=== PATIENT | male | born 1935 | race Two or more races ===

== ENCOUNTER 2019-02-09 12:18 | Inpatient (IN) | payer MEDICARE, MEDICAID ==
[~2019-02-09] VITALS: Ht 167.6 cm; Wt 78.5 kg
[2019-02-09] MEDS ORDERED: ASPIRIN 325 MG TABLET PO ONE (12:30)
[2019-02-09] MEDS ORDERED: NITROGLYCERIN PACKET 1 GM PACKET TD ONE (12:30)
[2019-02-09 12:40] LABS: BASOPHILS # (AUTO) 0.1 /CMM (0.0-0.2); BASOPHILS % (AUTO) 0.6 % (0.0-2.0); EOSINOPHILS % (AUTO) 1.7 % (0.0-6.0); HEMATOCRIT 30 % (39-51); HEMOGLOBIN 9.9 g/dL (13.5-17.5); LYMPHOCYTES # (AUTO) 1.7 /CMM (0.8-4.8); LYMPHOCYTES % (AUTO) 17.6 % (20.0-44.0); MEAN CORPUSCULAR HGB CONC 34 g/dl (31.0-36.0); MEAN CORPUSCULAR VOLUME 89 fL (80-96); MONOCYTES # (AUTO) 0.6 /CMM (0.1-1.30); MONOCYTES % (AUTO) 5.8 % (2.0-12.0); NEUTROPHILS # (AUTO) 7.1 /CMM (1.8-8.9); NEUTROPHILS % (AUTO) 74.3 % (43.0-81.0); PLATELET COUNT (AUTO) 275 /CMM (150-450); RED BLOOD CELL COUNT(AUTO) 3.32 MIL/uL (4.5-6.0); WHITE BLOOD COUNT (AUTO) 9.6 K/uL (4.3-11.0)
[2019-02-09] MEDS ORDERED: NITROGLYCERIN PACKET 1 GM PACKET ONE (12:40)
[2019-02-09] MEDS ORDERED: ASPIRIN 325 MG TABLET ONE (12:41)
--- NOTE | 2019-02-09 12:45 | NUR ---
PT TO ER BED 12. NO ACUTE DISTRESS. HOOKED UP TO MONITOR. AWAITNG MD ROJAS.
[2019-02-09 12:49] LABS: CALCIUM, SERUM 8.7 mg/dL (8.5-10.1); CARBON DIOXIDE 20 mmol/L (21-32); CHLORIDE 105 mmol/L (98-107); GLUCOSE 273 mg/dL (74-106); POTASSIUM 4.9 mmol/L (3.5-5.1); SODIUM SERUM 138 mmol/L (136-145); UREA NITROGEN, BLOOD 49 mg/dL (7-18)
[2019-02-09 12:55] LABS: ALANINE AMINOTRANSFERASE 23 U/L (12-78); ALBUMIN 3.1 g/dL (3.4-5.0); ALKALINE PHOSPHATASE 76 U/L (46-116); ASPARTATE AMINOTRANSFERASE 15 U/L (15-37); BILIRUBIN,TOTAL 0.2 mg/dL (0.2-1.0); TOTAL PROTEIN, SERUM 6.6 g/dL (6.4-8.2)
--- NOTE | 2019-02-09 13:08 | NUR ---
IV ACCESS OBATINED ON R AC 18G
--- NOTE | 2019-02-09 13:23 | NUR ---
WENDY PAGED, GONZALO MUELLER NURSING SERVICE DIRECTOR SECURITY AUDITOR
--- NOTE | 2019-02-09 13:23 | NUR ---
CALLED NURSING SUP. FOR TELE BED
--- NOTE | 2019-02-09 13:37 | NUR ---
TELE 106, COLIN
--- NOTE | 2019-02-09 13:52 | NUR ---
[facility] REPAGED
[2019-02-09] MEDS ORDERED: ENOXAPARIN SODIUM 60 MG/0.6 ML DISP.SYRIN SQ ONE (14:30)
[2019-02-09] MEDS ORDERED: ENOXAPARIN SODIUM 80 MG/0.8 ML DISP.SYRIN SQ ONE (14:39)
[2019-02-09] MEDS ORDERED: MORPHINE SULFATE INJ 2 MG/ML DISP.SYRIN IV PRN (15:00)
[2019-02-09] MEDS ORDERED: ACETAMINOPHEN 325 MG TABLET PO PRN (15:00)
[2019-02-09] MEDS ORDERED: MAG HYDROX/AL HYDROX/SIMETH 30 ML UDC PO PRN (15:00)
[2019-02-09] MEDS ORDERED: NITROGLYCERIN 0.4 MG/TAB BOTTLE SL PRN (15:00)
[2019-02-09] MEDS ORDERED: DOCUSATE SODIUM 100 MG CAPSULE PO PRN (15:00)
[2019-02-09] MEDS ORDERED: ONDANSETRON HCL/PF 4 MG/2 ML VIAL IVP PRN (15:00)
--- NOTE | 2019-02-09 15:02 | NUR ---
REPORT GIVEN TO FAUSTINA SHAW FOR 106 TELE IN [place]
--- NOTE | 2019-02-09 15:11 | NUR ---
[facility]
--- NOTE | 2019-02-09 15:30 | NUR ---
RN NOTE RECEIVED PT ON BED WITH SON AT BEDSIDE, AOX3, NORTH KOREAN AND SUDANESE SPEAKING, CO PAIN IN THROAT AND CHEST 04/19. NO SOB. SKIN INTACT, IV IN R AC INTACT. VS STABLE. SON REQUESTS ACCU CHECK AND INSULIN TO BE ORDERED EDE SO PT CAN HAVE FOOD. SAFETY MEASURES IN PLACE, CALL LIGHT WITHIN REACH. WILL CONTINUE TO MONITOR.
[2019-02-09 15:45] VITALS: BP 105/60
[2019-02-09] MEDS ORDERED: DEXTROSE 50%-WATER 50 ML DISP.SYRIN IV PRN (16:00)
[2019-02-09] MEDS ORDERED: BLOOD SUGAR DIAGNOSTIC 1 EACH STRIP IN SCH (17:30)
[2019-02-09] MEDS: BLOOD SUGAR DIAGNOSTIC 1 EACH STRIP IN SCH ×2 (18:02→21:21)
[2019-02-09] MEDS: INSULIN REGULAR, HUMAN 100 UNIT/ML 3 ML VIAL SQ PRN ×2 (18:04→21:24)
[2019-02-09] MEDS ORDERED: FURO20TA4 PO (18:14)
[2019-02-09] MEDS ORDERED: ASPI-1169 PO (18:14)
[2019-02-09] MEDS ORDERED: ATOR20TA PO (18:14)
[2019-02-09] MEDS ORDERED: ENAL10TA PO (18:14)
--- NOTE | 2019-02-09 19:10 | NUR ---
DENTISTRY PROFESSOR NOTE PATIENT IS RESTING WITH HOB ELEVATED AOX3, ZAMBIAN SPEAKING, UNDERSTANDS SOME HEBREW, SPEECH IS CLEAR, ON ROOM AIR, NO S/SX OF CARDIAC OR RESPIRATORY DISTRESS, ON TELE SR, RAC #20G SL PATENT, FLUSHING WELL, SKIN KEPT CLEAN AND DRY, SAFETY MAINTAINED AT ALL TIMES, BED IN LOW LOCKED POSITION, CALL LIGHT WITHIN REACH, WILL CONTINUE TO MONITOR FOR ANY CHANGES IN CONDITION.
[2019-02-09] MEDS: MENTHOL/CETYLPYRD (CEPACOL) 1 LOZ LOZENGE PO PRN (19:29)
[2019-02-09 20:00] VITALS: BP 127/57
[2019-02-09] MEDS: INSULIN GLARGINE, 100 UNIT/ML CARTRIDGE SQ SCH (21:23)
[2019-02-09] MEDS ORDERED: SIMVASTATIN 20 MG TABLET PO SCH (22:00)
[2019-02-10] VITALS: BP 127/77
[2019-02-10 03:07] LABS: APPEARANCE,URINE CLEAR (CLEAR); BILIRUBIN,URINE NEGATIVE (NEGATIVE); BLOOD, URINE TRACE Ery/uL (NEGATIVE); COLOR,URINE YELLOW (YELLOW); KETONES,URINE NEGATIVE (NEGATIVE); LEUKOCYTE ESTERASE ,URINE NEGATIVE (NEGATIVE); NITRITE, URINE NEGATIVE (NEGATIVE); PH,URINE 5.5 (5.0-8.0); PROTEIN,URINE NEGATIVE (NEGATIVE); UGLUCOSE TRACE mg/dL (NEGATIVE); UROBILINOGEN,URINE 0.2 EU/dL (0.2)
[2019-02-10 03:34] LABS: BACTERIA,URINE None seen /HPF (None Seen); RBC,URINE 0-2 /HPF (0-2); SQUAMOUS EPITHELIAL CELL,UR Few /HPF (None Seen); WBC,URINE 0-2 /HPF (0-3)
[2019-02-10 03:35] LABS: MUCUS,URINE Few /LPF (None Seen)
[2019-02-10 04:00] VITALS: BP 145/74
[2019-02-10 04:43] LABS: BASOPHILS % (AUTO) 0.5 % (0.0-2.0); EOSINOPHILS % (AUTO) 3.2 % (0.0-6.0); HEMATOCRIT 30 % (39-51); LYMPHOCYTES # (AUTO) 2.3 /CMM (0.8-4.8); LYMPHOCYTES % (AUTO) 25.6 % (20.0-44.0); MEAN CORPUSCULAR HGB CONC 34 g/dl (31.0-36.0); MEAN CORPUSCULAR VOLUME 88 fL (80-96); MONOCYTES # (AUTO) 0.6 /CMM (0.1-1.30); NEUTROPHILS # (AUTO) 5.6 /CMM (1.8-8.9); NEUTROPHILS % (AUTO) 63.7 % (43.0-81.0); PLATELET COUNT (AUTO) 275 /CMM (150-450); RED BLOOD CELL COUNT(AUTO) 3.35 MIL/uL (4.5-6.0); WHITE BLOOD COUNT (AUTO) 8.8 K/uL (4.3-11.0)
[2019-02-10 05:25] LABS: SODIUM SERUM 145 mmol/L (136-145)
[2019-02-10 05:27] LABS: CHOLESTEROL 183 mg/dL (<200); HDL CHOLESTEROL 35 mg/dL (40-60); LDL 125 mg/dL (0-99); TRIGLYCERIDES 182 mg/dL (30-150)
[2019-02-10 05:30] LABS: CALCIUM, SERUM 8.8 mg/dL (8.5-10.1); CARBON DIOXIDE 23 mmol/L (21-32); PHOSPHORUS 3.5 mg/dL (2.5-4.9); POTASSIUM 4.5 mmol/L (3.5-5.1); THYROID STIMULATING HORMONE 1.583 uIU/mL (0.358-3.74)
[2019-02-10 05:33] LABS: CHLORIDE 110 mmol/L (98-107); CREATININE 1.9 mg/dL (0.6-1.3); GLUCOSE 67 mg/dL (74-106); MAGNESIUM 1.2 mg/dL (1.8-2.4); UREA NITROGEN, BLOOD 52 mg/dL (7-18)
--- NOTE | 2019-02-10 07:15 | NUR ---
RN NOTES PATIENT RECEIVED AWAKE ALERT AND VERBALLY RESPONSIVE, RESPIRATIONS EVEN AND UNLABORED, DENIES ANY PAIN OR DISCOMFORT AT THIS TIME. IV ACCESS TO RIGHT AC PATENT AND INTACT NO REDNESS OR INFILTRATION NOTED. PATIENT KEPT CLEAN AND DRY, CALL LIGHT WITHIN EASY REACH WILL CONTINUE TO MONITOR
[2019-02-10 08:00] VITALS: BP 149/53
[2019-02-10] MEDS: BLOOD SUGAR DIAGNOSTIC 1 EACH STRIP IN SCH ×2 (08:28→12:06)
[2019-02-10] MEDS: INSULIN REGULAR, HUMAN 100 UNIT/ML 3 ML VIAL SQ PRN ×3 (08:28→17:12)
[2019-02-10] MEDS: ASPIRIN 325 MG TABLET PO SCH (08:51)
[2019-02-10] MEDS: MENTHOL/CETYLPYRD (CEPACOL) 1 LOZ LOZENGE PO PRN ×2 (08:54→19:03)
[2019-02-10] MEDS ORDERED: ENALAPRIL MALEATE (10 MG) 10 MG TABLET PO SCH (09:00)
[2019-02-10] MEDS ORDERED: FUROSEMIDE 20 MG TABLET PO SCH (09:00)
[2019-02-10] MEDS ORDERED: ASPIRIN 81 MG TAB.CHEW PO SCH (09:00)
[2019-02-10] MEDS ORDERED: IV NS 0.9% 1,000 ML IV PRN (09:48)
[2019-02-10] MEDS: Magnesium 1GM/D5W 100ML PREMIX 100 ML IV SCH ×2 (10:32→11:42)
[2019-02-10 12:59] LABS: APPEARANCE,URINE CLEAR (CLEAR); BILIRUBIN,URINE NEGATIVE (NEGATIVE); BLOOD, URINE TRACE Ery/uL (NEGATIVE); COLOR,URINE YELLOW (YELLOW); KETONES,URINE NEGATIVE (NEGATIVE); LEUKOCYTE ESTERASE ,URINE NEGATIVE (NEGATIVE); NITRITE, URINE NEGATIVE (NEGATIVE); PROTEIN,URINE NEGATIVE (NEGATIVE); UGLUCOSE 1+ mg/dL (NEGATIVE); UROBILINOGEN,URINE 0.2 EU/dL (0.2)
[2019-02-10 13:07] LABS: CREATININE, URINE 48.4 MG/DL (30.0-125.0)
[2019-02-10 13:09] LABS: BACTERIA,URINE None seen /HPF (None Seen); RBC,URINE 0-2 /HPF (0-2); SQUAMOUS EPITHELIAL CELL,UR None Seen /HPF (None Seen); WBC,URINE NONE SEEN /HPF (0-3)
[2019-02-10 13:10] LABS: EOSINOPHIL,URINE None Seen
[2019-02-10] MEDS ORDERED: DEXTROSE 50%-WATER 50 ML DISP.SYRIN IV PRN (15:00)
[2019-02-10] MEDS ORDERED: *INSULIN REGULAR(HUMULIN R)HUM 100 UNIT/ML VIAL SQ PRN (15:00)
[2019-02-10 16:00] VITALS: BP 142/58
[2019-02-10] MEDS: BLOOD SUGAR DIAGNOSTIC 1 EACH STRIP VI SCH ×2 (17:05→21:41)
--- NOTE | 2019-02-10 19:40 | NUR ---
RN NOTES PATIENT AWAKE ALERT AND VERBALLY RESPONSIVE, RESPIRATIONS EVEN AND UNLABORED, DENIES ANY PAIN OR DISCOMFORT AT THIS TIME. IV ACCESS TO RIGHT AC PATENT AND INTACT NO REDNESS OR INFILTRATION NOTED RUNNING NORMAL SALINE AT 100CC/HR . FAMILY AWARE, PT TO HAVE STRESS TEST IN AM, AWARE NOT TO HAVE ANY CAFFEINE TONIGHT AND NPO AFTER MIDNIGHT. PATIENT KEPT CLEAN AND DRY, CALL LIGHT WITHIN EASY REACH, ENDORSED TO NEXT SHIFT FOR CONTINUITY OF CARE
[2019-02-10 20:00] VITALS: BP 113/62
--- NOTE | 2019-02-10 20:08 | NUR ---
ms dylan initial notes seen pt in bed with family at the bedside talking to him. pt denies any pain or any discomfort. pt also aware of his stress test in am at 8am and sons told me that he's coming before the schedule. ivf ns at 100ml/hr infusing on his left AC patent and intact. kept him warm and comfortable at all times. will continue monitoring. place call light reach.
[2019-02-10] MEDS: INSULIN GLARGINE, 100 UNIT/ML CARTRIDGE SQ SCH (21:46)
[2019-02-10] MEDS ORDERED: ATORVASTATIN 10 MG TABLET PO SCH (22:00)
--- NOTE | 2019-02-10 22:00 | NUR ---
MS PALMA NOTES PT AWAKE AND WATCHING TV , ROUTINE MEDS GIVEN AND BLOOD SUGAR CHECKED DONE 241, 40 UNITS OF LANTUS GIVEN WELL 4 UNITS OF INSULIN.NO SIGNS OF HYPER GLYCEMIA NOTED. SNACKS ASLO SERVED, PT STILL ON IVF NS AT 100ML/HR. WILL CONTINUE MONITORING. PLACE CALL LIGHT AT REACH.
--- NOTE | 2019-02-11 | NUR ---
MS LIGHTING FIXTURES DECORATOR NOTES PT SLEEPING COMFORTABLY IN BED WITHOUT ANY DISTRESS NOTED. BREATHING EVEN AND UNLABORED . IVF STILL INFUSING. NPO STARTED NOW BECAUSE OF HIS STRESS TEST. KEPT HIM WARM AND COMFORTABLE AT ALL TIMES. PLACE CALL LIGHT AT REACH.
[2019-02-11 00:43] VITALS: BP 128/70
--- NOTE | 2019-02-11 03:36 | NUR ---
MS REGULAR SENIOR CARE PROVIDER NOTES PT WOKE UP AND WANTS TO USED THE RESTROOM, ABLE TO AMBULATE BY HIMSELF. NO SIGNS OF ANY PAIN OR ANY DISCOMFORT. BACK TO BED AND IVF STILL INFUSING NS AT 100ML/HR. KEPT HIM WARM AND COMFORTABLE AT ALL TIMES. PLACE CALL LIGHT AT REACH.
[2019-02-11 04:38] VITALS: BP 129/58
[2019-02-11 06:27] LABS: BASOPHILS % (AUTO) 0.4 % (0.0-2.0); EOSINOPHILS % (AUTO) 2.4 % (0.0-6.0); HEMATOCRIT 31 % (39-51); HEMOGLOBIN 10.2 g/dL (13.5-17.5); LYMPHOCYTES % (AUTO) 23.8 % (20.0-44.0); MEAN CORPUSCULAR HGB CONC 34 g/dl (31.0-36.0); MEAN CORPUSCULAR VOLUME 88 fL (80-96); MONOCYTES # (AUTO) 0.6 /CMM (0.1-1.30); MONOCYTES % (AUTO) 7.1 % (2.0-12.0); NEUTROPHILS # (AUTO) 5.5 /CMM (1.8-8.9); NEUTROPHILS % (AUTO) 66.3 % (43.0-81.0); PLATELET COUNT (AUTO) 283 /CMM (150-450); RED BLOOD CELL COUNT(AUTO) 3.47 MIL/uL (4.5-6.0); WHITE BLOOD COUNT (AUTO) 8.3 K/uL (4.3-11.0)
[2019-02-11 06:48] LABS: CREATINE KINASE, TOTAL 70 U/L (39-308)
--- NOTE | 2019-02-11 06:48 | NUR ---
MS PALMA CLOSING NOTES PT AWAKE AT THIS TIME WATCHING TV AT THIS TIME. AWARE OF HIS PROCEDURE TODAY AND I ALSO TOLD HIM THAT HE CAN'T EAT OR DRINK AT THIS TIME UNTIL HIS TEST BEEN DONE AND PT UNDERSTOOD WELL. PT ALSO AWARE THAT HIS SON COMING BEFORE HIS STRESS TEST. STABLE OTILIA THE NIGHT AND SLEPT WELL. ALL DUE MEDS GIVEN AND ALL NEEDS MET. KEPT HIM WARM AND COMFORTABLE AT ALL TIMES. MORNING CARE DONE WELL BED LINEN CHANGED FOR PT COMFORT. PT STATED "THANK YOU ". BLOOD SUGAR CHECKED ALSO 151 , NO INSULIN GIVEN AT THIS TIME BECAUSE PT NPO SINCE 12 MN FOR STRESS TEST. NO SIGNS OF ANY DISCOMFORT. WILL ENDORSE TO AM NURSE FOR CONTINUITY OF CARE. PLACE CALL LIGHT AT REACH.
[2019-02-11 06:54] LABS: ALANINE AMINOTRANSFERASE 22 U/L (12-78); ALBUMIN 2.8 g/dL (3.4-5.0); ALKALINE PHOSPHATASE 73 U/L (46-116); ASPARTATE AMINOTRANSFERASE 13 U/L (15-37); BILIRUBIN,TOTAL 0.2 mg/dL (0.2-1.0); CALCIUM, SERUM 8.4 mg/dL (8.5-10.1); CARBON DIOXIDE 22 mmol/L (21-32); CHLORIDE 110 mmol/L (98-107); CREATININE 1.5 mg/dL (0.6-1.3); GLUCOSE 156 mg/dL (74-106); MAGNESIUM 1.7 mg/dL (1.8-2.4); PHOSPHORUS 3.3 mg/dL (2.5-4.9); POTASSIUM 4.5 mmol/L (3.5-5.1); SODIUM SERUM 143 mmol/L (136-145); TOTAL PROTEIN, SERUM 6.5 g/dL (6.4-8.2); UREA NITROGEN, BLOOD 41 mg/dL (7-18)
[2019-02-11] MEDS: BLOOD SUGAR DIAGNOSTIC 1 EACH STRIP VI SCH ×2 (07:34→12:12)
[2019-02-11 08:00] VITALS: BP 146/57
[2019-02-11] MEDS ORDERED: REGADENOSON 0.4 MG/5 ML DISP.SYRIN IVP ONE (08:00)
[2019-02-11] MEDS: ASPIRIN 325 MG TABLET PO SCH (08:20)
[2019-02-11] MEDS: Magnesium 1GM/D5W 100ML PREMIX 100 ML IV SCH ×2 (11:46→12:39)
[2019-02-11] MEDS: INSULIN REGULAR, HUMAN 100 UNIT/ML 3 ML VIAL SQ PRN (12:09)
[2019-02-11] MEDS: MENTHOL/CETYLPYRD (CEPACOL) 1 LOZ LOZENGE PO PRN (12:11)
[2019-02-11] MEDS ORDERED: INSU100I30 SQ (15:52)
--- NOTE | 2019-02-11 16:12 | NUR ---
Patient cleared for d/c to home by . Patient alert and oriented x4, ambulatory ,intact skin. VS are stable and within normal range, breathing unlabored and even on room air, not in any distress. Discharge instructions and education provided to patient: pt verbalized understanding. D/c instruction form sighed, valuable form sighed ( all belongings with the patient ).IV assess line removed, ID wrist band removed. Patient will f/u with PCP in one week. Patient safely transferred to [facility] accompanied by nurse and patient"s son
[2019-02-12 12:12] LABS: PTH, INTACT 57 pg/mL (15-65)
[2019-02-12 13:10] LABS: *SPE A/G RATIO 1.1 (0.7-1.7); *SPE ALPHA-1-GLOBULIN 0.2 g/dL (0.0-0.4); *SPE ALPHA-2-GLOBULIN 0.9 g/dL (0.4-1.0); *SPE BETA GLOBULIN 0.9 g/dL (0.7-1.3); *SPE GLOBULIN, TOTAL 2.8 g/dL (2.2-3.9); *SPE M-SPIKE Not Observed g/dL (Not Observed); *SPEGAMMA GLOBULIN 0.7 g/dL (0.4-1.8)
== END 2019-02-11 16:15 | disposition home or self-care (01) | DRG 280 ==
LOC: ER 12:18 → TELE1 14:21 → MEDSG1 02-10 10:18
PROVIDERS: ADMIT Registered Nurse; ATTEND Registered Nurse
DX: I21.A1 Myocardial infarction type 2 (principal); N17.0 Acute kidney failure with tubular necrosis; E44.1 Mild protein-calorie malnutrition; I13.0 Hypertensive heart and chronic kidney disease with heart failure and stage 1 through stage 4 chronic kidney disease, or unspecified chronic kidney disease; M94.0 Chondrocostal junction syndrome [Tietze]; N18.9 Chronic kidney disease, unspecified; E11.65 Type 2 diabetes mellitus with hyperglycemia; E11.22 Type 2 diabetes mellitus with diabetic chronic kidney disease; E78.5 Hyperlipidemia, unspecified; I50.9 Heart failure, unspecified; E83.42 Hypomagnesemia; I25.10 Atherosclerotic heart disease of native coronary artery without angina pectoris; Z95.5 Presence of coronary angioplasty implant and graft; R00.0 Tachycardia, unspecified; E88.09 Other disorders of plasma-protein metabolism, not elsewhere classified; Z68.27 Body mass index [BMI] 27.0-27.9, adult; D63.8 Anemia in other chronic diseases classified elsewhere; Z79.4 Long term (current) use of insulin
CPT/HCPCS: 36415; 71045-TC; 76770-TC; 80048-TC; 80053-TC; 80061-TC; 80076-TC; 81000-TC; 82550-TC; 82570-TC; 82728-TC; 82962-TC; 83540-TC; 83735-TC; 83970; 84100-TC; 84155; 84155-TC; 84165; 84300-TC; 84443-TC; 84484-TC; 85025-TC; 87081-TC; 93307-TC; A9502; G0378; J1650; J1815; J2785; J3475; J7030

== ENCOUNTER 2025-09-28 10:56 | Inpatient (IN) | payer MEDICARE, OTHER ==
[~2025-09-28] VITALS: Ht 172.7 cm; Wt 74.8 kg
[~2025-09-28 10:56] MED LIST: ASPI-1169 PO; ATOR20TA PO; ENAL10TA39 PO; FURO20TA4 PO; INSU100I30 SQ
--- NOTE | 2025-09-28 10:59 | NUR ---
sent by PMD for R foot wound check. BROUGHT IN VIA WHEELCHAIR, PLACED IN BED12, AAOX4, BREATHING EVEN AND UNLABORED SATURATING AT 94%RA
--- NOTE | 2025-09-28 11:03 | NUR ---
MRSA SCREENING TOOL COMPLETED
--- NOTE | 2025-09-28 11:04 | NUR ---
CONTACTED NURSE SUP FOR BED
--- NOTE | 2025-09-28 11:17 | NUR ---
BLOOD DRAWN AND SENT TO LAB
[2025-09-28] MEDS ORDERED: VANCOMYCIN 1 GM /D5W 250 ML PB IV ONE (11:18)
[2025-09-28] MEDS ORDERED: PIPERACI/TAZO 3.375GM/D5W 50ML PB IV ONE (11:18)
[2025-09-28 11:20] LABS: PLATELET COUNT (AUTO) 360 K/uL (150-450); RED BLOOD CELL COUNT(AUTO) 4.02 MIL/uL (4.5-6.0); RED CELL DISTRIBUTION WIDTH 14.2 % (11.5-15.0); WHITE BLOOD COUNT (AUTO) 13.8 K/uL (4.3-11.0)
[2025-09-28] MEDS: IV NS 0.9% 1,000 ML BAG IV ONE (11:30)
[2025-09-28] MEDS: PIPERACILLIN /TAZOBACTAM 3.375 G in IV D5W 50 ML IV ONE (11:30)
--- NOTE | 2025-09-28 11:31 | NUR ---
328-2, ER ADMITTING AWARE
[2025-09-28 11:33] LABS: ASPARTATE AMINOTRANSFERASE 16 U/L (15-37); CALCIUM, SERUM 8.7 mg/dL (8.5-10.1); SODIUM SERUM 134 mmol/L (136-145); TOTAL PROTEIN, SERUM 7.9 g/dL (6.4-8.2)
[2025-09-28 11:37] LABS: INR 0.97 (0.91-1.10)
[2025-09-28 11:38] LABS: CREATININE 3.7 mg/dL (0.6-1.3)
[2025-09-28 11:43] LABS: UREA NITROGEN, BLOOD 85 mg/dL (7-18)
[2025-09-28] MEDS: VANCOMYCIN 1 GM in IV D5W 250 ML IV ONE (11:55)
[2025-09-28] MEDS ORDERED: DOSING PER PHARMACY-VANCOMYCIN IV XX PRN (12:00)
[2025-09-28] MEDS ORDERED: MAGNESIUM HYDROXIDE 30 ML UDC PO PRN (12:00)
[2025-09-28] MEDS ORDERED: MAG HYDROX/AL HYDROX/SIMETH 30 ML UDC PO PRN (12:00)
[2025-09-28] MEDS ORDERED: ONDANSETRON HCL/PF 4 MG/2 ML VIAL IVP PRN (12:00)
[2025-09-28] MEDS ORDERED: DEXTROSE 50%-WATER 50 ML DISP.SYRIN IV PRN (12:00)
[2025-09-28] MEDS ORDERED: ENOXAPARIN SODIUM 40 MG/0.4 ML DISP.SYRIN SQ SCH (12:00)
[2025-09-28] MEDS: BLOOD SUGAR DIAGNOSTIC 1 EACH STRIP IN SCH (12:00)
--- NOTE | 2025-09-28 12:04 | NUR ---
REPORT GIVEN TO BANDAR WEEMS ROOM 328-2 FOR PRATEEK
--- NOTE | 2025-09-28 12:23 | NUR ---
PATIENT TRANSFERED AND ADMITTED FOR PRATEEK
--- NOTE | 2025-09-28 12:30 | NUR ---
RN NOTE - OPENING NOTE RECEIVED REPORT FROM FOREST PATHOLOGY ASSOCIATE PROFESSOR. PATIENT ARRIVED TO THE UNIT VIA GURNEY WITH A STAFF MEMBER FROM THE ER. PATIENT IS ALERT AND ORIENTED X4, ANDORRAN SPEAKING, ABLE TO MAKE NEEDS KNOWN. PATIENT IS ON ROOM AIR, NO SHORTNESS OF BREATH, NO RESPIRATORY DISTRESS, BREATHING IS EVEN AND UNLABORED. PATIENT ARRIVED TO THE UNIT WITH IV ACCESS TO RIGHT ANTECUBITAL RUNNING VANCOMYCIN @ 250ML/HR. PATIENT WAS SAFELY TRANSFERRED TO THE BED. SAFETY PRECAUTIONS IN PLACE, BED IN LOWEST POSITION AND LOCKED, SIDE RAILS UP X2, HEAD OF BED ELEVATED TO SEMI-FOWLERS POSITION, BED ALARM ON, CALL LIGHT WITHIN REACH. WILL CONTINUE ONGOING PLAN OF CARE.
[2025-09-28] MEDS ORDERED: MEMA10TA PO (12:58)
[2025-09-28] MEDS ORDERED: ROSU20TA2 PO (12:58)
[2025-09-28] MEDS ORDERED: ESCI10TA PO (12:58)
[2025-09-28] MEDS ORDERED: TAMS-12 PO (12:58)
[2025-09-28] MEDS ORDERED: ALLO100T PO (12:58)
[2025-09-28] MEDS ORDERED: OMEP1CAP24 PO (12:58)
[2025-09-28] MEDS ORDERED: ERGO500040 PO (12:58)
[2025-09-28] MEDS ORDERED: RIVA1PAT3 TD (12:58)
[2025-09-28] MEDS ORDERED: INSU100V11 SQ (12:58)
[2025-09-28] MEDS ORDERED: CLOP75TA15 PO (12:58)
[2025-09-28] MEDS ORDERED: TAVA10SO2 TP (12:58)
[2025-09-28] MEDS ORDERED: ZILE600T5 PO (12:58)
[2025-09-28] MEDS ORDERED: GABA-532 PO (12:58)
[2025-09-28] MEDS ORDERED: PRAM0.253 PO (12:58)
[2025-09-28] MEDS ORDERED: DUTA0.5C37 PO (12:58)
[2025-09-28] MEDS ORDERED: INSU100I26 SQ (12:58)
[2025-09-28] MEDS: VANCOMYCIN 500 MG in IV D5W 100ml IV ONE (14:17)
[2025-09-28] MEDS: ENOXAPARIN SODIUM 30 MG/0.3 ML DISP.SYRIN SQ SCH (14:35)
[2025-09-28] MEDS: CEFTRIAXONE 1 G in IV D5W 50 ML IV SCH (15:22)
[2025-09-28 16:00] VITALS: BP 152/70; TEMP 97.7; O2SAT 97
[2025-09-28] MEDS: INSULIN REGULAR, HUMAN 100 UNIT/ML 3 ML VIAL SQ PRN (16:41)
--- NOTE | 2025-09-28 19:05 | NUR ---
RN NOTE - CLOSING NOTE PATIENT IS IN BED, AWAKE, ALERT AND ORIENTED X4, KISWAHILI SPEAKING, ABLE TO MAKE NEEDS KNOWN. PATIENT IS ON ROOM AIR, NO SHORTNESS OF BREATH, NO RESPIRATORY DISTRESS, BREATHING IS EVEN AND UNLABORED. PATIENT HAS IV ACCESS TO RIGHT ANTECUBITAL GAUGE #20, SALINE LOCK, INTACT, PATENT AND FLUSHING WELL. ALL DUE MEDICATIONS ADMINISTERED, PATIENT TOLERATED WELL. ALL NEEDS MET, PATIENT KEPT CLEAN AND COMFORTABLE. NO VERBALIZATION OF PAIN OR DISCOMFORT AT THIS TIME. SAFETY PRECAUTIONS IN PLACE, BED IN LOWEST POSITION AND LOCKED, SIDE RAILS UP X2, HEAD OF BED ELEVATED TO SEMI-FOWLERS POSITION, BED ALARM ON, CALL LIGHT WITHIN REACH. ENDORSED TO NEXT SHIFT RN REGARDING ONGOING PLAN OF CARE.
--- NOTE | 2025-09-28 19:25 | NUR ---
MS RN OPENING NOTE RECEIVED PATIENT IN BED SLEEPING EASILY AWOKEN AWAKE, A/OX4 ABLE TO MAKE NEEDS KNOWN PRIMARILY SPEAKS CITIZEN OF [place] ON ROOM AIR NO SIGNS OF SOB AND DISTRESS WITH AN IV ACCES SON THE RIGHT AC #20G SL PATENT AND INTACT, IS ABLE TO AMBULATE WITH ASSISTANCE ENCOURAGED PATIENT TO USE CALL IF IN NEED OF HELP VERBALIZED UNDERSTANDING, SAFETY MEASURES MAINTAINED BED SET TO LOW AND LOCKED BED ALARM ON SIDE RAILS UPX2 PLACED CALL LIGHT BEDSIDE TABLE AND URINAL WITHIN EASY REACH PLAN OF CARE ONGOING
[2025-09-28 20:00] VITALS: BP 143/108; TEMP 99.1; O2SAT 95
[2025-09-28 20:33] VITALS: BP 144/91; O2SAT 98
--- NOTE | 2025-09-29 06:53 | NUR ---
MS RN CLOSING NOTE PATIENT IN BED SLEEPING EASILY AWOKEN AWAKE, A/OX4 ABLE TO MAKE NEEDS KNOWN PRIMARILY SPEAKS ENGLISH ON ROOM AIR NO SIGNS OF SOB AND DISTRESS WITH AN IV ACCES SON THE RIGHT AC #20G SL PATENT AND INTACT, IS ABLE TO AMBULATE WITH ASSISTANCE ENCOURAGED PATIENT TO USE CALL IF IN NEED OF HELP VERBALIZED UNDERSTANDING,ALL DUE MEDS GIVEN KEPT PATIENT CLEAN AND DRY WOUND CARE DONE SAFETY MEASURES MAINTAINED BED SET TO LOW AND LOCKED BED ALARM ON SIDE RAILS UPX2 PLACED CALL LIGHT BEDSIDE TABLE AND URINAL WITHIN EASY REACH WILL ENDORSE TO INCOMING NURSE FOR CONTINUITY OF CARE
[2025-09-29 07:30] LABS: PLATELET COUNT (AUTO) 329 K/uL (150-450); RED BLOOD CELL COUNT(AUTO) 3.75 MIL/uL (4.5-6.0); RED CELL DISTRIBUTION WIDTH 13.9 % (11.5-15.0); WHITE BLOOD COUNT (AUTO) 10.3 K/uL (4.3-11.0)
[2025-09-29 07:33] LABS: CALCIUM, SERUM 9.0 mg/dL (8.5-10.1); PHOSPHORUS 4.6 mg/dL (2.5-4.9); SODIUM SERUM 139.0 mmol/L (136-145)
[2025-09-29 07:42] LABS: CREATININE 4.0 mg/dL (0.6-1.3)
--- NOTE | 2025-09-29 07:45 | NUR ---
MS RN OPENING NOTE (DAY SHIFT) RECEIVED PATIENT IN BED SLEEPING EASILY AWOKEN AWAKE, A/O X 4, ABLE TO MAKE HIS NEEDS KNOWN. PRIMARILY SPEAKS LUXEMBOURGISH. ON ROOM AIR WITHOUT ANY SIGNS OF SOB NOR DISTRESS. HAS AN IV ACCESS ON THE RIGHT AC #20G SL THAT IS PATENT AND INTACT, IS ABLE TO AMBULATE WITH ASSISTANCE. ENCOURAGED PATIENT TO USE CALL BERNSTEIN/LIGHT IF IN NEED OF HELP. PATIENT VERBALIZED UNDERSTANDING. FALL PREVENTION SAFETY MEASURES MAINTAINED: BED SET TO LOWEST POSITION; BED BRAKES LOCKED ON; BED ALARM ON; BED SIDE RAILS UP X 2; AND PLACED CALL LIGHT AND BEDSIDE TABLE AND URINAL WITHIN EASY REACH OF THE PATIENT. WILL CONTINUE TO MONITOR AND CARE FOR THE PATIENT PER HOSPITALIST'S POC.
[2025-09-29 08:10] LABS: UREA NITROGEN, BLOOD 87.0 mg/dL (7-18)
[2025-09-29] MEDS: PANTOPRAZOLE 40 MG TABLET.DR PO SCH (08:29)
--- NOTE | 2025-09-29 08:45 | NUR ---
WOUND CARE CONSULT: PT PRESENTS WITH LOWER EXTREMITY WOUNDS, PRESENT ON ADMISSION. DR MCCURDY CALLED FOR DPM CONSULT. IN AGREEMENT WITH PLAN OF CARE.
[2025-09-29 10:00] VITALS: BP 113/51; TEMP 97.9; O2SAT 96
[2025-09-29] MEDS: CLOPIDOGREL BISULFATE 75 MG TABLET PO SCH (12:19)
[2025-09-29] MEDS: ACETAMINOPHEN 325 MG TABLET PO PRN (12:20)
[2025-09-29] MEDS: RIVASTIGMINE TARTRATE 4.6 MG PATCH.TD24 TD SCH (12:47)
--- NOTE | 2025-09-29 13:00 | NUR ---
PATIENT MOVED TO PRIVATE ROOM (319) PER FAMILY/PATIENT'S REQUEST Transferred to single room due to c/o noise with roommate and inability to sleep at night.
--- NOTE | 2025-09-29 14:30 | NUR ---
MRI OF PATIENT'S RIGHT FOOT FOOT COMPLETED.
[2025-09-29 17:02] VITALS: BP 137/54; TEMP 98.1; O2SAT 96
[2025-09-29] MEDS: MEMANTINE HCL 5 MG TABLET PO SCH (17:17)
--- NOTE | 2025-09-29 19:00 | NUR ---
MS RN CLOSING NOTE (DAY SHIFT) PATIENT IN BED SLEEPING EASILY AWOKEN AWAKE, A/OX4 ABLE TO MAKE NEEDS KNOWN PRIMARILY SPEAKS ZAMBIAN ON ROOM AIR NO SIGNS OF SOB AND DISTRESS WITH AN IV ACCES SON THE RIGHT AC #20G SL PATENT AND INTACT, IS ABLE TO AMBULATE WITH ASSISTANCE ENCOURAGED PATIENT TO USE CALL IF IN NEED OF HELP VERBALIZED UNDERSTANDING,ALL DUE MEDS GIVEN KEPT PATIENT CLEAN AND DRY WOUND CARE DONE SAFETY MEASURES MAINTAINED BED SET TO LOW AND LOCKED BED ALARM ON SIDE RAILS UPX2 PLACED CALL LIGHT BEDSIDE TABLE AND URINAL WITHIN EASY REACH WILL ENDORSE TO INCOMING NURSE FOR CONTINUITY OF CARE
--- NOTE | 2025-09-29 19:30 | NUR ---
RN OPENING NOTES RECEIVED PATIENT IN BED AWAKE, A/OX4 ABLE TO MAKE NEEDS KNOWN PRIMARILY SPEAKS [place] CITIZEN ON ROOM AIR NO SIGNS OF SOB AND DISTRESS WITH AN IV ACCES ON THE RIGHT AC #20G SL PATENT AND INTACT, IS ABLE TO AMBULATE WITH ASSISTANCE ENCOURAGED PATIENT TO USE CALL LIGHT IF IN NEED OF HELP VERBALIZED UNDERSTANDING SAFETY MEASURES MAINTAINED BED SET TO LOW AND LOCKED BED ALARM ON SIDE RAILS UPX2 PLACED CALL LIGHT BEDSIDE TABLE AND URINAL WITHIN EASY REACH , PLAN OF CARE ONGOING
[2025-09-29 20:00] VITALS: BP 159/63; TEMP 98.8; O2SAT 96
[2025-09-29] MEDS ORDERED: DEXTROSE 50%-WATER 50 ML DISP.SYRIN IV PRN (20:00)
[2025-09-29] MEDS: ATORVASTATIN 40 MG TABLET PO SCH (21:23)
[2025-09-29] MEDS: BLOOD SUGAR DIAGNOSTIC 1 EACH STRIP VI SCH (21:24)
[2025-09-29] MEDS: INSULIN REGULAR, HUMAN 100 UNIT/ML 3 ML VIAL SQ PRN (21:28)
[2025-09-29] MEDS: INSULIN GLARGINE, 100 UNIT/ML CARTRIDGE SQ SCH (21:29)
--- NOTE | 2025-09-30 06:50 | NUR ---
RN CLOSING NOTES PATIENT IN BED AWAKE, A/OX4 ABLE TO MAKE NEEDS KNOWN PRIMARILY SPEAKS [place] ON ROOM AIR NO SIGNS OF SOB AND DISTRESS WITH AN IV ACCES ON THE RIGHT AC #20G SL PATENT AND INTACT, DUE MEDS GIVEN , NEEDS ATTENDED . ENCOURAGED PATIENT TO USE CALL LIGHT IF IN NEED OF HELP VERBALIZED UNDERSTANDING SAFETY MEASURES MAINTAINED BED SET TO LOW AND LOCKED BED ALARM ON SIDE RAILS UPX2 PLACED CALL LIGHT BEDSIDE TABLE AND URINAL WITHIN EASY REACH , PLAN OF CARE ONGOING
[2025-09-30 07:00] VITALS: BP 125/59; TEMP 98.1; O2SAT 95
--- NOTE | 2025-09-30 07:30 | NUR ---
MS RN OPENING NOTE (DAY SHIFT) RECEIVED PATIENT IN BED SLEEPING EASILY AWOKEN AWAKE, A/O X 4, ABLE TO MAKE HIS NEEDS KNOWN. PRIMARILY SPEAKS INDONESIAN. ON ROOM AIR WITHOUT ANY SIGNS OF SOB NOR DISTRESS. HAS AN IV ACCESS ON THE LEFT FOREARM #20G SL THAT IS PATENT AND INTACT AND FLUSHES WELL WITHOUT ANY SIGNS OF COMPLICATIONS OF IV THERAPY. PATIENT IS ABLE TO AMBULATE WITH ASSISTANCE. ENCOURAGED PATIENT TO USE CALL BERNSTEIN/LIGHT IF IN NEED OF HELP. PATIENT VERBALIZED UNDERSTANDING. FALL PREVENTION SAFETY MEASURES MAINTAINED: BED SET TO LOWEST POSITION; BED BRAKES LOCKED ON; BED ALARM ON; BED SIDE RAILS UP X 2; AND PLACED CALL LIGHT AND BEDSIDE TABLE AND URINAL WITHIN EASY REACH OF THE PATIENT. WILL CONTINUE TO MONITOR AND CARE FOR THE PATIENT PER HOSPITALIST'S POC.
[2025-09-30] MEDS: TAMSULOSIN 0.4 MG CAP.SR.24H PO SCH (09:44)
[2025-09-30] MEDS: DUTASTERIDE (0.5 MG) 0.5 MG CAPSULE PO SCH (09:44)
[2025-09-30] MEDS: Z GUARD REMEDY 4 OZ OINT TP PRN (09:44)
[2025-09-30] MEDS: GABAPENTIN 100 MG CAPSULE PO SCH (09:46)
[2025-09-30] MEDS: ENALAPRIL MALEATE (10 MG) 10 MG TABLET PO SCH (09:46)
[2025-09-30] MEDS: ESCITALOPRAM OXALATE (10 MG) 10 MG TABLET PO SCH (09:46)
[2025-09-30] MEDS: PRAMIPEXOLE DI-HCL 0.25 MG TABLET PO SCH (09:46)
[2025-09-30] MEDS: ALLOPURINOL 100 MG TABLET PO SCH (09:46)
[2025-09-30 11:51] LABS: CALCIUM, SERUM 8.8 mg/dL (8.5-10.1); CREATININE 4.0 mg/dL (0.6-1.3); SODIUM SERUM 136.0 mmol/L (136-145)
[2025-09-30 11:58] LABS: UREA NITROGEN, BLOOD 82.0 mg/dL (7-18)
[2025-09-30] MEDS: VANCOMYCIN 750 MG in IV D5W 250 ML IV SCH (14:29)
[2025-09-30 16:00] VITALS: BP 127/44; TEMP 97.9; O2SAT 99
--- NOTE | 2025-09-30 19:00 | NUR ---
MS RN CLOSING NOTE (DAY SHIFT) PATIENT IN BED SLEEPING EASILY AWOKEN AWAKE, A/O X 4 ABLE TO MAKE NEEDS KNOWN PRIMARILY SPEAKS UPPER SORBIAN ON ROOM AIR NO SIGNS OF SOB AND DISTRESS WITH AN IV ACCESS IS ON THE LEFT FOREARM #20G SL PATENT, INTACT, STILL FLUSHES WITHOUT ANY SIGNS OF COMPLICATIOMNS OF IV THERAPY. IS ABLE TO AMBULATE WITH ASSISTANCE. ENCOURAGED PATIENT TO USE CALL BERNSTEIN IF IN NEED OF HELP VERBALIZED UNDERSTANDING, ALL DUE MEDS GIVEN. KEPT PATIENT CLEAN AND DRY WOUND CARE DONE. PATIENT KEEEPS REMOVING FOOT /TOES DRESSINGS. SAFETY MEASURES MAINTAINED BED SET TO LOW AND LOCKED BED ALARM ON SIDE RAILS UP X 2 PLACED CALL LIGHT BEDSIDE TABLE AND URINAL WITHIN EASY REACH OF THE PATIENT. WILL ENDORSE POC TO ETHYLBENZENE CRACKING SUPERVISOR NURSE.
--- NOTE | 2025-09-30 19:10 | NUR ---
MS RN OPENING NOTES RECEIVED PATIENT IN BED, AWAKE. ALERT/ ORIENTED X 4, ALBANIAN SPEAKING. ON ROOM AIR, TOLERATING WELL. NO SOB/ NOTED, BREATHING EVEN AND UNLABORED. NO RESPIRATORY DISTRESS NOTED. DENIES PAIN OR DISCOMFORT AT THIS TIME. WITH IV ACCESS ON LEFT FOREARM G#20 ON SALINE LOCKED: INTACT, PATENT AND FLUSHING WELL. WITH WOUND DRESSING ON BILATERAL FOOT CLEAN DRY AND INTACT. FALL AND SAFETY MEASURES IN PLACE: BED IN LOWEST AND LOCKED POSITION WITH SIDE RAILS UP 2X,BED ALARM ON, CALL LIGHT AND TABLE WITHIN EASY REACH. PLAN OF CARE ONGOING.
[2025-09-30 20:00] VITALS: BP 93/51; TEMP 98.1; O2SAT 96
--- NOTE | 2025-09-30 21:48 | NUR ---
RN NOTES ELEVATED BLOOD SUGAR OF 351 MG/DL NOTED. LANTUS 60 UNITS AND 15 UNITS OF REGULAR INSULIN GIVEN. Addendum: 10/01/25 at 0627 by AMRIT ZAVALA RN CORRECTION 10 UNITS OF REGULAR INSULIN GIVEN
--- NOTE | 2025-10-01 06:45 | NUR ---
MS RN CLOSING NOTES RECEIVED PATIENT IN BED, AWAKE. ALERT/ ORIENTED X 4, GREEK SPEAKING. ON ROOM AIR, TOLERATING WELL. NO SOB/ NOTED, BREATHING EVEN AND UNLABORED. NO RESPIRATORY DISTRESS NOTED. DENIES PAIN OR DISCOMFORT AT THIS TIME. WITH IV ACCESS ON LEFT FOREARM G#20 ON SALINE LOCKED: INTACT, PATENT AND FLUSHING WELL. WITH WOUND DRESSING ON BILATERAL FOOT CLEAN DRY AND INTACT. FALL AND SAFETY MEASURES MAINTAINED IN PLACE: BED IN LOWEST AND LOCKED POSITION WITH SIDE RAILS UP 2X,BED ALARM ON, CALL LIGHT AND TABLE WITHIN EASY REACH. WOUND CARE DONE. ALL DUE MEDICATIONS GIVEN. ALL NEEDS ATTENDED. WILL ENDORSE TO AM NURSE FOR CONTINUITY OF CARE.
--- NOTE | 2025-10-01 07:01 | NUR ---
RN NOTE - OPENING NOTE RECEIVED PATIENT IN BED, AWAKE, ALERT AND ORIENTED X4, ABLE TO MAKE NEEDS KNOWN, KISWAHILI SPEAKING. PATIENT IS ON ROOM AIR, NO SHORTNESS OF BREATH, NO RESPIRATORY DISTRESS, BREATHING IS EVEN AND UNLABORED. PATIENT HAS IV ACCESS TO LEFT FOREARM GAUGE #20 SALINE LOCK, INTACT, PATENT AND FLUSHING WELL. SAFETY PRECAUTIONS IN PLACE, BED IN LOWEST POSITION AND LOCKED, SIDE RAILS UP X2, HEAD OF BED ELEVATED TO SEMI-FOWLERS POSITION, BED ALARM ON, CALL LIGHT WITHIN REACH. WILL CONTINUE ONGOING PLAN OF CARE.
[2025-10-01 08:00] VITALS: BP 90/62; TEMP 97.7; O2SAT 97
[2025-10-01 08:06] LABS: PLATELET COUNT (AUTO) 322 K/uL (150-450); RED BLOOD CELL COUNT(AUTO) 3.41 MIL/uL (4.5-6.0); RED CELL DISTRIBUTION WIDTH 14.5 % (11.5-15.0); WHITE BLOOD COUNT (AUTO) 11.1 K/uL (4.3-11.0)
[2025-10-01 08:23] LABS: ASPARTATE AMINOTRANSFERASE 33.0 U/L (15-37); CALCIUM, SERUM 8.5 mg/dL (8.5-10.1); PHOSPHORUS 5.2 mg/dL (2.5-4.9); SODIUM SERUM 141.0 mmol/L (136-145); TOTAL PROTEIN, SERUM 6.4 g/dL (6.4-8.2)
[2025-10-01 08:52] LABS: CREATININE 4.6 mg/dL (0.6-1.3)
--- NOTE | 2025-10-01 08:59 | NUR ---
RN NOTE DUE VASOTEC NON ADMINISTERED DUE TO PATIENT'S BLOOD PRESSURE NOTED AT 90/62.
[2025-10-01 09:20] LABS: UREA NITROGEN, BLOOD 87.0 mg/dL (7-18)
[2025-10-01] MEDS: IV NS 0.9% 1,000 ML IV PRN (11:47)
[2025-10-01 16:00] VITALS: BP 124/50; TEMP 97.7; O2SAT 96
--- NOTE | 2025-10-01 18:54 | NUR ---
RN NOTE - CLOSING NOTE PATIENT IN BED, ASLEEP, ABLE TO AROUSE EASILY TO VERBAL STIMULI AND LIGHT TOUCH. PATIENT IS ALERT AND ORIENTED X4, ABLE TO MAKE NEEDS KNOWN, MONTSERRATIAN SPEAKING. PATIENT IS ON ROOM AIR, NO SHORTNESS OF BREATH, NO RESPIRATORY DISTRESS, BREATHING IS EVEN AND UNLABORED. PATIENT HAS IV ACCESS TO LEFT FOREARM GAUGE #20 RUNNING NS @ 50ML/HR. DUE MEDICATIONS ADMINISTERED, PATIENT TOLERATED WELL. WOUND CARE COMPLETED, PATIENT TOLERATED WELL. ALL NEEDS MET, PATIENT KEPT CLEAN AND COMFORTABLE. NO VERBALIZATION OF PAIN OR DISCOMFORT AT THIS TIME. SAFETY PRECAUTIONS IN PLACE, BED IN LOWEST POSITION AND LOCKED, SIDE RAILS UP X2, HEAD OF BED ELEVATED TO SEMI-FOWLERS POSITION, BED ALARM ON, CALL LIGHT WITHIN REACH. ENDORED TO NEXT SHIFT RN REGARDING ONGOING PLAN OF CARE.
--- NOTE | 2025-10-01 19:05 | NUR ---
MS RN OPENING NOTES RECEIVED PT LYING ON BED, AWAKE A/O4 ABLE TO MAKE NEEDS KNOWN EMIRATI SPEAKING ON ROOM AIR, TOLERATING WELL. WITH TOLERABLE RUBIA FOOT PAIN DUE PAIN MEDS GIVEN BY AM RN. WITH IV ACCESS AT LFA #20 WITH RUNNING NS AT 50ML/HR INFUSING WELL. SAFETY MEASURES OBSERVED. WILL CONTINUE PLAN OF CARE
[2025-10-01 20:00] VITALS: BP 132/51; TEMP 97.5; O2SAT 97
[2025-10-01 22:06] LABS: APPEARANCE,URINE CLEAR (CLEAR); BLOOD, URINE TRACE-INTA Ery/uL (NEGATIVE); LEUKOCYTE ESTERASE ,URINE NEGATIVE (NEGATIVE); NITRITE, URINE NEGATIVE (NEGATIVE); UGLUCOSE 3+ mg/dL (NEGATIVE)
[2025-10-01 22:18] LABS: CREATININE, URINE 88.3 MG/DL (30.0-125.0); URINE SODIUM, RANDOM 33.0 mmol/l (40-220); URINE TOTAL PROTEIN 75.9 mg/dL (0-11.9)
[2025-10-01 22:19] LABS: ADD URINE CULTURE YES
[2025-10-01 22:20] LABS: SQUAMOUS EPITHELIAL CELL,UR Few /HPF (None Seen); URINE AMORPHOUS URATE Few /HPF (None Seen)
[2025-10-01 23:12] LABS: EOSINOPHIL,URINE Rare
--- NOTE | 2025-10-02 06:51 | NUR ---
MS RN CLOSING NOTES LEFT PT LYING ON BED, AWAKE A/O4 ABLE TO MAKE NEEDS KNOWN BAHAMIAN SPEAKING ON ROOM AIR, TOLERATING WELL NO RESPIRATORY DISTRESS NOTED. NO PAIN OR DISCOMFORT NOTED. WITH IV ACCESS AT LFA #20 WITH RUNNING NS AT 50ML/HR INFUSING WELL. DUE MEDICATIONS GIVEN. NO ADVERSE REACTION NOTED. SAFETY MEASURES OBSERVED AND MAINTAINED. ENDORSED PRATEEK.
--- NOTE | 2025-10-02 07:03 | NUR ---
RN NOTE - OPENING NOTE RECEIVED PATIENT IN BED, AWAKE, ALERT AND ORIENTED X4, ABLE TO MAKE NEEDS KNOWN, LITHUANIAN SPEAKING. PATIENT IS ON ROOM AIR, NO SHORTNESS OF BREATH, NO RESPIRATORY DISTRESS, BREATHING IS EVEN AND UNLABORED. PATIENT HAS IV ACCESS TO LEFT FOREARM GAUGE #20 RUNNING NS @ 50ML/HR. SAFETY PRECAUTIONS IN PLACE, BED IN LOWEST POSITION AND LOCKED, SIDE RAILS UP X2, HEAD OF BED ELEVATED TO SEMI-FOWLERS POSITION, BED ALARM ON, CALL LIGHT WITHIN REACH. WILL CONTINUE ONGOING PLAN OF CARE.
[2025-10-02 07:49] LABS: PLATELET COUNT (AUTO) 291 K/uL (150-450); RED BLOOD CELL COUNT(AUTO) 3.32 MIL/uL (4.5-6.0); RED CELL DISTRIBUTION WIDTH 14.6 % (11.5-15.0); WHITE BLOOD COUNT (AUTO) 9.6 K/uL (4.3-11.0)
[2025-10-02 08:00] VITALS: BP 103/43; TEMP 98.2; O2SAT 95
[2025-10-02 08:33] LABS: ASPARTATE AMINOTRANSFERASE 26.0 U/L (15-37); CALCIUM, SERUM 8.4 mg/dL (8.5-10.1); CREATININE 4.1 mg/dL (0.6-1.3); PHOSPHORUS 5.1 mg/dL (2.5-4.9); SODIUM SERUM 140.0 mmol/L (136-145); TOTAL PROTEIN, SERUM 6.0 g/dL (6.4-8.2)
[2025-10-02 08:34] LABS: UREA NITROGEN, BLOOD 90.0 mg/dL (7-18)
[2025-10-02 08:35] LABS: CREATINE KINASE, TOTAL 38.0 U/L (39-308)
--- NOTE | 2025-10-02 09:00 | NUR ---
RN NOTE DUE VASOTEC NON-ADMINISTERED DUE TO PATIENT'S DECREASED BLOOD PRESSURE. BLOOD PRESSURE NOTED AT 103/43, HR 65.
[2025-10-02] MEDS: ERGOCALCIFEROL (VITAMIN D 2) 50,000 UNIT CAPSULE PO SCH (09:05)
[2025-10-02] MEDS ORDERED: ERGOCALCIFEROL (VITAMIN D 2) 50,000 UNIT CAPSULE PO SCH (12:31)
[2025-10-02 16:45] VITALS: BP 145/50; TEMP 97.5; O2SAT 97
--- NOTE | 2025-10-02 19:02 | NUR ---
RN NOTE - CLOSING NOTE PATIENT IN BED, ASLEEP, ABLE TO AROUSE EASILY TO VERBAL STIMULI AND LIGHT TOUCH. PATIENT IS ALERT AND ORIENTED X4, ABLE TO MAKE NEEDS KNOWN, [place] R[place] SPEAKING. PATIENT IS ON ROOM AIR, NO SHORTNESS OF BREATH, NO RESPIRATORY DISTRESS, BREATHING IS EVEN AND UNLABORED. PATIENT HAS IV ACCESS TO LEFT FOREARM GAUGE #20 RUNNING NS @ 50ML/HR. DUE MEDICATIONS ADMINISTERED, PATIENT TOLERATED WELL. WOUND CARE PROVIDED TO WOUND ON RIGHT AND LEFT HALLUX AND RIGHT 2ND TOE. PATIENT DOES NOT VERBALIZE ANY PAIN OR DISCOMFORT AT THIS TIME. SAFETY PRECAUTIONS IN PLACE, BED IN LOWEST POSITION AND LOCKED, SIDE RAILS UP X2, HEAD OF BED ELEVATED TO SEMI-FOWLERS POSITION, BED ALARM ON, CALL LIGHT WITHIN REACH. ENDORSED TO NEXT SHIFT RN REGARDING ONGOING PLAN OF CARE.
--- NOTE | 2025-10-02 19:03 | NUR ---
MS RN OPENING NOTES RECEIVED AWAKE ON BED. A/O X4 KINYARWANDA SPEAKER BUT ABLE TO UNDERSTAND SOME NEPALI. ON ROOM AIR TOLERATING WELL WITHOUT ANY RESPIRATORY DISTRESS NOTED. WITH IV ACCESS AT LEFT FOREARM G#20 RUNNING NS @ 50 CC/HR INFUSING WELL. SAFETY MEASURES MAINTAINED. BED LOCKED AND IN LOWEST POSITION. SIDE RAILS X3. CALL LIGHT AND BEDSIDE TABLE WITHIN EASY REACH. WILL CONTINUE PLAN OF CARE.
--- NOTE | 2025-10-02 21:00 | NUR ---
RN NOTES PHOTOS TAKEN ON PATIENT'S WOUND ON HIS BILATERAL FEET. WOUND CARE/DRESSING DONE.
[2025-10-02] MEDS: *INSULIN REGULAR(HUMULIN R)HUM 100 UNIT/ML VIAL SQ PRN (21:31)
--- NOTE | 2025-10-02 21:34 | NUR ---
RN NOTES PATIENT'S BLOOD SUGAR IS 265 MG/DL. LANTUS 60 UNITS SQ GIVEN. HUMULIN R NOT GIVEN.
[2025-10-02 22:00] VITALS: BP 155/68; TEMP 97.9; O2SAT 95
--- NOTE | 2025-10-03 06:39 | NUR ---
MS RN CLOSING NOTES PATIENT ASLEEP ON BED. EASY TO AROUSE. A/O X4 SPANISH SPEAKER BUT ABLE TO UNDERSTAND SOME LATVI[place]. ROOM AIR TOLERATED WELL WITHOUT ANY RESPIRATORY DISTRESS NOTED. WITH IV ACCESS AT LEFT FOREARM G#20 RUNNING NS @ 50 CC/HR INFUSING WELL. SAFETY MEASURES MAINTAINED. NEEDS ATTENDED. DUE MEDS GIVEN. KEPT COMFORTABLE. ENDORSED TO AM SHIFT NURSE.
[2025-10-03 07:17] LABS: PLATELET COUNT (AUTO) 327 K/uL (150-450); RED BLOOD CELL COUNT(AUTO) 3.22 MIL/uL (4.5-6.0); RED CELL DISTRIBUTION WIDTH 14.4 % (11.5-15.0); WHITE BLOOD COUNT (AUTO) 10.0 K/uL (4.3-11.0)
[2025-10-03 07:20] LABS: CALCIUM, SERUM 8.7 mg/dL (8.5-10.1); CREATININE 3.8 mg/dL (0.6-1.3); SODIUM SERUM 143.0 mmol/L (136-145)
--- NOTE | 2025-10-03 07:20 | NUR ---
MS RN OPENING NOTES PATIENT RECEIVED AWAKE IN BED. A/O X4 DIVEHI SPEAKER BUT ABLE TO UNDERSTAND SOME SAMI. BREATHING EVEN AND UNLABORED ON ROOM AIR, TOLERATING WELL WITHOUT ANY RESPIRATORY DISTRESS NOTED. WITH IV ACCESS AT LEFT FOREARM G#20 RUNNING NS @ 50 CC/HR INFUSING WELL. NO C/O PAIN OR DISCOMFORT AT THIS TIME. SAFETY MEASURES IN PLACE, BED LOCKED AND IN LOWEST POSITION, SIDE RAILS X3, CALL LIGHT AND BEDSIDE TABLE WITHIN EASY REACH. PLAN OF CARE ONGOING.
[2025-10-03 07:34] LABS: UREA NITROGEN, BLOOD 87.0 mg/dL (7-18)
[2025-10-03 09:40] VITALS: BP 136/51; TEMP 98.2; O2SAT 97
--- NOTE | 2025-10-03 13:00 | NUR ---
RN NOTE PATIENT HAS WOUNDS ON RIGHT GREAT TOE, RIGHT SECOND TOE, AND LEFT GREAT TOE. WOUND CARE PERFORMED ACCORDING TO ORDERS. BETADINE SOAKED GAUZE WRAPPED WITH KERLIX TO RIGHT GREAT TOE AND SECOND TOE, AND LEFT GREAT TOE. HEELS OFFLOADED WITH PILLOW AFTER WOUND CARE WAS PERFORMED. PATIENT TOLERATED PROCEDURE WELL, NO C/O PAIN OR DISCOMFORT AT THIS TIME. PLAN OF CARE ONGOING.
--- NOTE | 2025-10-03 19:18 | NUR ---
MS RN CLOSING NOTES PATIENT ASLEEP ON BED. EASILY AROUSED TO VERBAL STIMULI. A/O X4 GERMAN SPEAKER BUT ABLE TO UNDERSTAND SOME [place]. BREATHING EVEN AND UNLABORED ON ROOM AIR, TOLERATED WELL WITHOUT ANY RESPIRATORY DISTRESS NOTED. WITH IV ACCESS AT LEFT FOREARM G#20 RUNNING NS @ 50 CC/HR INFUSING WELL. NO C/O PAIN OR DISCOMFORT AT THIS TIME. SAFETY MEASURES MAINTAINED, BED LOCKED IN LOWEST POSITION, SIDE RAILS UP X2, CALL LIGHT AND SIDE TABLE WITHIN REACH. ALL NEEDS ATTENDED TO AND ALL MEDS ADMINISTERED ORDERED. ENDORSED TO GRADES 1 THROUGH 6 TEACHER NURSE FOR CONTINUITY OF CARE.
--- NOTE | 2025-10-03 19:47 | NUR ---
MS RN OPENING NOTES PATIENT ASLEEP BUT EASILY AWAKENED AND RESTING COMFORTABLY ON BED WITH HEAD OF BED ELEVATED. ALERT AND ORIENTED X 4, [place] SPEAKER AND CAN ONLY UNDERSTAND SOME LUXEMBOURGISH. ON ROOM AIR SATURATING WELL WITH SPO2 OF 97% AND WITH EVEN AND NONLABORED BREATHING. NO CARDIAC OR RESPIRATORY DISTRESS NOTED AT THIS TIME. NO NONVERBAL OR VERBAL CUES OF PAIN NOTED. WITH IV ACCESS ON HIS LEFT FOREARM GAUGE # 20 PATENT, INTACT AND INFUSING NS AT 50 ML/HR WELL. ON BED REST. USES URINAL. ALL FALL AND SAFETY MEASURES IMPLEMENTED: BED IN LOWEST AND LOCKED POSITION, BED ALARM ON, SIDE RAILS X 2, CALL LIGHT AND TABLE PLACED WITHIN PATIENT'S REACH. NO FURTHER NEEDS NOTED AT THIS TIME.
[2025-10-03 20:00] VITALS: BP 156/58; TEMP 97.7; O2SAT 97
--- NOTE | 2025-10-03 22:00 | NUR ---
MS RN NOTES PROVIDED WITH WARM BLANKET PER REQUEST.
[2025-10-04 01:07] LABS: PTH, INTACT 153 pg/mL (15-65)
--- NOTE | 2025-10-04 05:40 | NUR ---
MS RN NOTES PROVIDED PATIENT WITH NEW JUG OF ICE WATER PER REQUEST.
--- NOTE | 2025-10-04 06:58 | NUR ---
MS RN CLOSING NOTES PATIENT ASLEEP BUT EASILY AWAKENED AND RESTING COMFORTABLY ON BED WITH HEAD OF BED ELEVATED. ALERT AND ORIENTED X 4, ROMANSH SPEAKER AND CAN ONLY UNDERSTAND SOME MALAY. STILL ON ROOM AIR SATURATING WELL WITH SPO2 OF 97% AND WITH EVEN AND NONLABORED BREATHING. NO CARDIAC OR RESPIRATORY DISTRESS NOTED WITHIN THE SHIFT. NO NONVERBAL OR VERBAL CUES OF PAIN NOTED. STILL WITH IV ACCESS ON HIS LEFT FOREARM GAUGE # 20 PATENT, INTACT AND INFUSING NS AT 50 ML/HR WELL. ON BED REST. URINAL EMPTIED AND RECORDED. KEPT SAFE AND COMFORTABLE. ALL NURSING NEEDS AND CONCERNS ATTENDED. ALL FALL AND SAFETY MEASURES MAINTAINED: BED STILL IN LOWEST AND LOCKED POSITION, BED ALARM ON, SIDE RAILS X 2, CALL LIGHT AND TABLE PLACED WITHIN PATIENT'S REACH. WILL ENDORSE TO MORNING SHIFT RN FOR CONTINUITY OF CARE.
--- NOTE | 2025-10-04 07:15 | NUR ---
MS RN OPENING NOTES PATIENT RECEIVED ASLEEP IN BED, EASILY AROUSED TO VERBAL STIMULI. A/O X4 MALTESE SPEAKER BUT ABLE TO UNDERSTAND SOME [place]UGUES[place]. BREATHING EVEN AND UNLABORED ON ROOM AIR, TOLERATING WELL, WITHOUT ANY SOB OR RESPIRATORY DISTRESS NOTED. WITH IV ACCESS AT LEFT FOREARM G#20 RUNNING NS @ 50 ML/HR INFUSING WELL. NO C/O PAIN OR DISCOMFORT AT THIS TIME. SAFETY MEASURES IN PLACE, BED LOCKED AND IN LOWEST POSITION, SIDE RAILS X3, CALL LIGHT AND BEDSIDE TABLE WITHIN EASY REACH. PLAN OF CARE ONGOING.
[2025-10-04 08:00] VITALS: BP 146/154; TEMP 98.1
[2025-10-04 08:48] LABS: CALCIUM, SERUM 7.8 mg/dL (8.5-10.1); CREATININE 3.1 mg/dL (0.6-1.3); SODIUM SERUM 145.0 mmol/L (136-145); UREA NITROGEN, BLOOD 68.0 mg/dL (7-18)
[2025-10-04] MEDS: GLUCERNA SHAKE 237 ML CAN PO SCH (15:30)
[2025-10-04 16:00] VITALS: BP 151/54; TEMP 98.1; O2SAT 97
--- NOTE | 2025-10-04 16:30 | NUR ---
RN NOTE PATIENT REQUESTING MORE WATER. REFILLED PATIENT'S WATER PITCHER. PATIENT CALMLY RESTING IN BED WATCHING TELEVISION ON HIS LAPTOP. PLAN OF CARE ONGOING.
--- NOTE | 2025-10-04 18:00 | NUR ---
RN NOTE LAB REPORTED CRITICAL VANCOMYCIN TROUGH, 31. MD MADE AWARE WITH NO NEW ORDERS. PLAN OF CARE ONGOING.
--- NOTE | 2025-10-04 18:20 | NUR ---
RN NOTE PATIENT IS HAVING PROCEDURE TOMORROW BY DR. LEE. CONSENT SIGNED BY SON AT BEDSIDE AND PLACED IN PATIENT'S CHART. PLAN OF CARE ONGOING.
--- NOTE | 2025-10-04 19:21 | NUR ---
MS RN CLOSING NOTES PATIENT AWAKE IN BED WITH FAMILY AT BEDSIDE. A/O X4 SINHALA SPEAKER BUT ABLE TO UNDERSTAND SOME QATARI. BREATHING EVEN AND UNLABORED ON ROOM AIR, TOLERATED WELL WITHOUT ANY RESPIRATORY DISTRESS NOTED. WITH IV ACCESS AT LEFT FOREARM G#20 RUNNING NS @ 50 CC/HR INFUSING WELL. NO C/O PAIN OR DISCOMFORT AT THIS TIME. PATIENT IS NPO AFTER MIDNIGHT EXCEPT MEDS FOR PROCEDURE TOMORROW. PROCEDURE CONSENT SIGNED BY SON AT BEDSIDE. SAFETY MEASURES MAINTAINED, BED LOCKED IN LOWEST POSITION, SIDE RAILS UP X2, CALL LIGHT AND SIDE TABLE WITHIN REACH. ALL NEEDS ATTENDED TO AND ALL MEDS ADMINISTERED ORDERED. ENDORSED TO BRANCH CUSTOMER SERVICE REPRESENTATIVE NURSE FOR CONTINUITY OF CARE.
--- NOTE | 2025-10-04 19:45 | NUR ---
MS RN OPENING NOTES PATIENT AWAKE AND RESTING COMFORTABLY ON BED WITH HEAD OF BED ELEVATED. ALERT AND ORIENTED X 4, HAITIAN SPEAKER AND CAN ONLY UNDERSTAND SOME ALBANIAN. ON ROOM AIR SATURATING WELL WITH SPO2 OF 97% AND WITH EVEN AND NONLABORED BREATHING. NO CARDIAC OR RESPIRATORY DISTRESS NOTED AT THIS TIME. NO NONVERBAL OR VERBAL CUES OF PAIN NOTED. WITH IV ACCESS ON HIS LEFT FOREARM GAUGE # 20 PATENT, INTACT AND INFUSING NS AT 50 ML/HR WELL. ON BED REST. USES URINAL. ALL FALL AND SAFETY MEASURES IMPLEMENTED: BED IN LOWEST AND LOCKED POSITION, BED ALARM ON, SIDE RAILS X 2, CALL LIGHT AND TABLE PLACED WITHIN PATIENT'S REACH. NO FURTHER NEEDS NOTED AT THIS TIME.
[2025-10-04 20:00] VITALS: BP 180/63; TEMP 98.1; O2SAT 97
[2025-10-04 21:00] VITALS: BP_SYST 140; BP_SYST 180; BP_DIAS 63; BP_DIAS 70; TEMP 98.1; O2SAT 97
--- NOTE | 2025-10-04 21:08 | NUR ---
MS RN NOTES RECHECKED BLOOD PRESSURE MANUALLY AND GOT 140/70 MMHG.
[2025-10-04 21:11] VITALS: BP_SYST 111; BP_SYST 140; BP_DIAS 60; BP_DIAS 70; TEMP 98.1; O2SAT 98
--- NOTE | 2025-10-04 22:00 | NUR ---
MS RN NOTES INSTRUCTED AND REMINDED PATIENT THAT HE IS NOT ALLOWED TO EAT OR DRINK ANYTHING AT 12 MIDNIGHT FOR HIS PROCEDURE TOMORROW. PATIENT VERBALIZED UNDERSTANDING BY NODDING. PLACED PATIENT'S TABLE FULL WITH FOOD AND WATER AWAY FROM PATIENT.
[2025-10-05] VITALS (10 sets, daily range): BP systolic 125–167; BP diastolic 48–82; TEMP 97.3–97.8; O2SAT 95–98
--- NOTE | 2025-10-05 06:00 | NUR ---
MS RN NOTES BED LINENS CHANGED WITH HELP OF MULUGETA DELATORRE. PATIENT ACCIDENTALLY PULLED OUT IV ACCESS. SUCCESSFULLY INSERTED NEW IV ACCESS ON PATIENT'S LEFT FOREARM 20 GAUGE.
[2025-10-05 06:27] LABS: CALCIUM, SERUM 8.7 mg/dL (8.5-10.1); CREATININE 2.6 mg/dL (0.6-1.3); SODIUM SERUM 144.0 mmol/L (136-145); UREA NITROGEN, BLOOD 61.0 mg/dL (7-18)
[2025-10-05 06:48] LABS: PLATELET COUNT (AUTO) 330 K/uL (150-450); RED BLOOD CELL COUNT(AUTO) 3.11 MIL/uL (4.5-6.0); RED CELL DISTRIBUTION WIDTH 14.8 % (11.5-15.0); WHITE BLOOD COUNT (AUTO) 9.6 K/uL (4.3-11.0)
[2025-10-05] MEDS ORDERED: LIDOCAINE HCL/MPF 1% 30 ML VIAL IJ ONE (07:12)
--- NOTE | 2025-10-05 07:35 | NUR ---
MS RN CLOSING NOTES PATIENT ASLEEP BUT EASILY AWAKENED AND RESTING COMFORTABLY ON BED WITH HEAD OF BED ELEVATED. ALERT AND ORIENTED X 4, CZECH SPEAKER AND CAN ONLY UNDERSTAND SOME HUNGARIAN. STILL ON ROOM AIR SATURATING WELL WITH SPO2 OF 97% AND WITH EVEN AND NONLABORED BREATHING. NO CARDIAC OR RESPIRATORY DISTRESS NOTED WITHIN THE SHIFT. NO NONVERBAL OR VERBAL CUES OF PAIN NOTED. STILL WITH IV ACCESS ON HIS LEFT FOREARM GAUGE # 20 PATENT, INTACT AND INFUSING NS AT 50 ML/HR WELL. ON BED REST. URINAL EMPTIED AND RECORDED. KEPT SAFE AND COMFORTABLE. ALL NURSING NEEDS AND CONCERNS ATTENDED. ALL FALL AND SAFETY MEASURES MAINTAINED: BED STILL IN LOWEST AND LOCKED POSITION, BED ALARM ON, SIDE RAILS X 2, CALL LIGHT AND TABLE PLACED WITHIN PATIENT'S REACH. REPORT GIVEN TO FAUSTINA MCGREGOR FOR CONTINUITY OF CARE.
--- NOTE | 2025-10-05 07:39 | NUR ---
RN NOTES PATIENT PICKED UP BY OR TEAM FOR SURGERY.
[2025-10-05] MEDS ORDERED: IV NS 0.9% 500 ML IV ONE (07:50)
[2025-10-05] MEDS ORDERED: IV SET PRIMARY PUMP SET 1 EA INFUS.SET MC ONE (07:50)
[2025-10-05] MEDS ORDERED: IODIXANOL 320MG/ML 100 ML IV ONE (08:01)
[2025-10-05] MEDS ORDERED: MIDAZOLAM HCL 2 MG/2ML VIAL ONE (08:12)
[2025-10-05] MEDS ORDERED: FENTANYL PF 100MCG/2ML AMPUL ONE (08:12)
[2025-10-05] MEDS ORDERED: HEPARIN SODIUM, PORCINE 5000 UNITS/1 ML VIAL ONE (08:54)
[2025-10-05] MEDS ORDERED: HEPARIN SODIUM, PORCINE 1,000 UNIT/ML VIAL ONE ×2 (08:54→09:18)
[2025-10-05] MEDS ORDERED: IODIXANOL 320MG/ML 50 ML IV ONE (09:11)
--- NOTE | 2025-10-05 11:00 | NUR ---
Pt received from cathlab awake, a/ox4. O2sat 98% on RA. Bedside monitor attached, showing SR at 70's. IV access on LFA #20g. NS started at 75 ml/hr. Medications checked. Chart checked. Physician order received. Sx insertion site checked, C/D/I. Bilateral Pedal pulsed present. Belongings checked. Skin checked. Safety measures in place. Pt kept flat on bed as needed. Plan of care ongoing.
[2025-10-05] MEDS: ASPIRIN 81 MG TAB.CHEW PO SCH (11:53)
[2025-10-05 15:09] LABS: *SPE A/G RATIO 0.8 (0.7-1.7); *SPE ALBUMIN 2.2 g/dL (2.9-4.4); *SPE ALPHA-1-GLOBULIN 0.3 g/dL (0.0-0.4); *SPE ALPHA-2-GLOBULIN 1.1 g/dL (0.4-1.0); *SPE BETA GLOBULIN 0.8 g/dL (0.7-1.3); *SPE GLOBULIN, TOTAL 2.6 g/dL (2.2-3.9); *SPE M-SPIKE Not Observed g/dL (Not Observed); *SPE PROTEIN TOTAL 4.8 g/dL (6.0-8.5); *SPEGAMMA GLOBULIN 0.5 g/dL (0.4-1.8)
--- NOTE | 2025-10-05 17:30 | NUR ---
rn notes received patient fr icu after abdominal aortogram. report given by hallie lemus. vs taken and recorded as follows rr 23 o2 sat on ra 97% pr 69 bp 165/60. will continue to monitor.
--- NOTE | 2025-10-05 17:40 | NUR ---
Report given to Lima WEEMS. Due meds given as needed and as ordered. AM meds given after receiving pt from cathlab. Insertion site C/D/I. Lines traced and checked. Pt kept clean. Needs attended. Safety measures kept in place. Plan of care ongoing and endorsed to geraldo WEEMS. Pt transferred to [facility] via acls protocol. Pt tolerated transfer well.
[2025-10-05] MEDS: hydrALAZINE HCL IV 20 MG VIAL IV PRN (18:41)
--- NOTE | 2025-10-05 19:11 | NUR ---
RN CLOSING NOTES PATIENT AWAKE IN BED. ON RA WITH NO S/S OF RESPIRATORY DISTRESS. S/P ANGIOGRAM BY DR LEE. PATIENT NOT IN PAIN RIGHT NOW. IV ACCESS ON LFA #20G WITH IVF OF NS @ 50 ML/HR. ALL DUE MEDS GIVEN AND NEEDS MET. SAFETY MEASURES MAINTAINED AT ALL TIMES. ENDORSED PLAN OF CARE TO INCOMING RN.
--- NOTE | 2025-10-05 19:30 | NUR ---
MS RN OPENING NOTES RECEIVED PATIENT AWAKE IN BED W/ DAUGHTER BY BEDSIDE. PATIENT A&OX4, TAJIK SPEAKING BUT ABLE TO CONVERSE IN BASIC SWAZI. PATIENT ABLE TO VERBALIZE NEEDS AND FOLLOW COMMANDS. PATIENT ON ROOM AIR, BREATHING EVEN AND UNLABORED, NO S/S OF RA. PATIENT HAS L-FA #20G IV ACCESS RUNNING ON NS @ 50ML/HR, SITE DRY/INTACT/PATENT. PATIENT BEDREST AND VOIDING THROUGH BEDSIDE URINAL. PATIENT COMFORTABLE IN BED W/ NO C/O PAIN. PATIENT BED LOW, LOCKED, SIDE RAILS UPX3, AND CALL LIGHT WITHIN REACH. ONGOING PLAN OF CARE.
[2025-10-06] VITALS: BP 134/50; TEMP 98.4
[2025-10-06 04:00] VITALS: BP 132/58; TEMP 98.6; O2SAT 97
--- NOTE | 2025-10-06 07:30 | NUR ---
MS RN OPENING NOTES RECEIVED PATIENT AWAKE IN BED. PATIENT A&OX4, ROMANSH SPEAKER, ON ROOM AIR, BREATHING EVEN AND UNLABORED, NO S/S OF DISTRESS. WITH LFA #20G IV ACCESS RUNNING ON NS @ 50ML/HR, SITE REMAINS DRY/INTACT/PATENT. PATIENT BEDREST AND VOIDING THROUGH BEDSIDE URINAL. DENIES PAIN AT THIS TIME. FALL SAFETY MEASURES MAINTAINED. PATIENT BED LOW, LOCKED, SIDE RAILS UPX3, AND CALL LIGHT WITHIN REACH. TURN Q2H PER PROTOCOL. PLAN OF CARE ONGOING.
--- NOTE | 2025-10-06 07:32 | NUR ---
MS RN CLOSING NOTES LEFT PATIENT AWAKE IN BED. PATIENT A&OX4, REMAINS ABLE TO VERBALIZE NEEDS AND FOLLOW COMMANDS IN BASIC HONDURAN. PATIENT REMAINS ABLE TO VERBALIZE NEEDS AND FOLLOW COMMANDS. PATIENT REMAINS ON ROOM AIR, BREATHING EVEN AND UNLABORED, NO S/S OF RA. PATIENT HAS L-FA #20G IV ACCESS RUNNING ON NS @ 50ML/HR, SITE REMAINS DRY/INTACT/PATENT. PATIENT BEDREST AND VOIDING THROUGH BEDSIDE URINAL. WOUND CARE IMPLEMENTED PER ORDER, PT TOLERATED INTERVENTION WELL. PATIENT REMAINS COMFORTABLE IN BED W/ NO C/O PAIN. ALL PATIENT NEEDS ATTENDED AND ADDRESSED. PATIENT SAFETY MEASURES MAINTAINED. PATIENT BED LOW, LOCKED, SIDE RAILS UPX3, AND CALL LIGHT WITHIN REACH. ENDORSED TO DAY SHIFT RN FOR PRATEEK.
[2025-10-06 07:57] LABS: PLATELET COUNT (AUTO) 318 K/uL (150-450); RED BLOOD CELL COUNT(AUTO) 2.95 MIL/uL (4.5-6.0); RED CELL DISTRIBUTION WIDTH 15.0 % (11.5-15.0); WHITE BLOOD COUNT (AUTO) 9.6 K/uL (4.3-11.0)
[2025-10-06 08:00] VITALS: BP 157/54; TEMP 97.7; O2SAT 97
[2025-10-06 08:07] LABS: ASPARTATE AMINOTRANSFERASE 17.0 U/L (15-37); CALCIUM, SERUM 8.5 mg/dL (8.5-10.1); CREATININE 2.6 mg/dL (0.6-1.3); PHOSPHORUS 2.9 mg/dL (2.5-4.9); SODIUM SERUM 145.0 mmol/L (136-145); TOTAL PROTEIN, SERUM 5.8 g/dL (6.4-8.2); UREA NITROGEN, BLOOD 56.0 mg/dL (7-18)
[2025-10-06] MEDS: SODIUM ZIRCONIUM CYCLOSILICATE 10 GM POWD.PACK PO SCH (10:51)
[2025-10-06 16:00] VITALS: BP 148/52; TEMP 97.4; O2SAT 99
[2025-10-06 17:13] LABS: CALCIUM, SERUM 8.7 mg/dL (8.5-10.1); CREATININE 2.8 mg/dL (0.6-1.3); SODIUM SERUM 144.0 mmol/L (136-145); UREA NITROGEN, BLOOD 54.0 mg/dL (7-18)
--- NOTE | 2025-10-06 18:31 | NUR ---
MS RN CLOSING NOTES PATIENT RESTING IN BED COMFORTABLY. PATIENT A&OX4, MONGOLIAN SPEAKER, ON ROOM AIR, BREATHING EVEN AND UNLABORED, NO S/S OF DISTRESS. WITH LFA #20G IV ACCESS RUNNING ON NS @ 50ML/HR, SITE REMAINS DRY/INTACT/PATENT. DENIES PAIN AT THIS TIME. FALL SAFETY MEASURES MAINTAINED. PATIENT BED LOW, LOCKED, SIDE RAILS UPX3, AND CALL LIGHT WITHIN REACH. WOUND CARE DONE. ALL NEEDS ATTENDED. ALL MEDS GIVEN ORDERED. PLAN OF CARE ONGOING. ENDORSED TO NEXT SHIFT.
--- NOTE | 2025-10-06 19:20 | NUR ---
MS RN OPENING NOTES PATIENT RESTING IN BED COMFORTABLY. PATIENT A&OX4, LITHUANIAN SPEAKER, ON ROOM AIR, BREATHING EVEN AND UNLABORED, NO S/S OF DISTRESS. WITH LFA #20G IV ACCESS RUNNING ON NS @ 50ML/HR, SITE REMAINS DRY/INTACT/PATENT. DENIES PAIN AT THIS TIME. FALL SAFETY MEASURES MAINTAINED. PATIENT BED LOW, LOCKED, SIDE RAILS UPX3, AND CALL LIGHT WITHIN REACH. ALL NEEDS ATTENDED. ALL MEDS GIVEN ORDERED. PLAN OF CARE ONGOING.
[2025-10-06 21:18] VITALS: BP 137/61; TEMP 97.7; O2SAT 98
[2025-10-07] MEDS ORDERED: ACETAMINOPHEN 325 MG TABLET ONE (05:50)
--- NOTE | 2025-10-07 06:51 | NUR ---
RN CLOSING NOTES PATIENT RESTING IN BED COMFORTABLY. PATIENT A&OX4, FRENCH SPEAKER, ON ROOM AIR, BREATHING EVEN AND UNLABORED, NO S/S OF DISTRESS. WITH LFA #20G IV ACCESS RUNNING ON NS @ 50ML/HR, SITE REMAINS DRY/INTACT/PATENT. DENIES PAIN AT THIS TIME. FALL SAFETY MEASURES MAINTAINED. PATIENT BED LOW, LOCKED, SIDE RAILS UPX3, AND CALL LIGHT WITHIN REACH. ALL NEEDS ATTENDED. ALL MEDS GIVEN ORDERED. PLAN OF CARE ONGOING.KEPT WARM AND COMFORTABLE ON BED , BS CHECHED 118MG/DL NO COVERAGE . ENDORSED TO NEXT SHIFT
[2025-10-07 07:32] LABS: PLATELET COUNT (AUTO) 352 K/uL (150-450); RED BLOOD CELL COUNT(AUTO) 3.12 MIL/uL (4.5-6.0); RED CELL DISTRIBUTION WIDTH 15.1 % (11.5-15.0); WHITE BLOOD COUNT (AUTO) 11.2 K/uL (4.3-11.0)
--- NOTE | 2025-10-07 07:48 | NUR ---
MS RN OPENING NOTES RECEIVED PATIENT AWAKE IN BED COMFORTABLY. ON ROOM AIR, BREATHING EVEN AND UNLABORED. NO INDICATION OF ACUTE RESPIRATORY DISTRESS NOTED. PATIENT A&OX4, MAORI SPEAKER WITH LFA #20G IV ACCESS RUNNING ON NS @ 50ML/HR NOTED SOLID DRESSING ON RIGHT GREAT TOES. WOUND NEEDS TX DAILY WITH SOAKED BETADINE GAUZE. WILL CHANGE THE SITE VOIDING VIA URINAL .FALL SAFETY MEASURES MAINTAINED. PATIENT BED LOW, LOCKED, SIDE RAILS UPX3, AND CALL LIGHT WITHIN REACH OF PT . ALL NEEDS ATTENDED. PLAN OF CARE ONGOING.
[2025-10-07 08:00] VITALS: BP 167/89; TEMP 98.7; O2SAT 98
[2025-10-07 08:12] VITALS: BP 167/89
[2025-10-07 08:35] LABS: ASPARTATE AMINOTRANSFERASE 18.0 U/L (15-37); CALCIUM, SERUM 8.9 mg/dL (8.5-10.1); CREATININE 2.5 mg/dL (0.6-1.3); PHOSPHORUS 3.1 mg/dL (2.5-4.9); SODIUM SERUM 144.0 mmol/L (136-145); TOTAL PROTEIN, SERUM 6.4 g/dL (6.4-8.2); UREA NITROGEN, BLOOD 48.0 mg/dL (7-18)
[2025-10-07] MEDS ORDERED: ASPI-1169 PO (09:10)
[2025-10-07] MEDS ORDERED: DOXY-326 PO (09:10)
[2025-10-07] MEDS ORDERED: AMOX-430 PO (09:10)
[2025-10-07] MEDS ORDERED: PANT40TA49 PO (09:10)
--- NOTE | 2025-10-07 14:30 | NUR ---
MS RN DC NOTE : PT LEFT HOSPITAL ACCOMPANIED WITH SON (JOS) VIA PRIVATE CAR. ON ROOM AIR, BREATHING EVEN AND UNLABORED. NO INDICATION OF ACUTE RESPIRATORY DISTRESS NOTED. ALL BELONGING AND DC PAPERS SIGNED BY PT. AOX3, MOHAWK SPEAKING. PT AND SON REFUSED SKIN ASSESSMENT AND PICTURES BEFORE DC. IV AND NAME BAND REMOVED ALL NURSING EDUCATION PROVIDED TO SON AND ABLE TO VERBALIZED BACK . VS STABLE PRIOR DC PT LEFT UNIT IN STABLE CONDITION.
[2025-10-07 15:33] LABS: HIV-1/2 ANTIBODY NON REACTIVE (NONREACTIVE)
[2025-10-09] MEDS ORDERED: ERGOCALCIFEROL (VITAMIN D 2) 50,000 UNIT CAPSULE PO SCH (09:00)
== END 2025-10-07 14:47 | disposition home health service (06) | DRG 271 ==
LOC: ER 10:59 → MED 11:36 → ICU 10-05 11:02 → MED 10-05 17:29
PROVIDERS: ATTEND Internal Medicine
PROC: 04CK3ZZ Extirpation of Matter from Right Femoral Artery, Percutaneous Approach (ICD-10-PCS; principal; 2025-10-05)
PROC: 047M3ZZ Dilation of Right Popliteal Artery, Percutaneous Approach (ICD-10-PCS; 2025-10-05)
PROC: B41FYZZ Fluoroscopy of Right Lower Extremity Arteries using Other Contrast (ICD-10-PCS; 2025-10-05)
DX: E11.52 Type 2 diabetes mellitus with diabetic peripheral angiopathy with gangrene (principal); I12.0 Hypertensive chronic kidney disease with stage 5 chronic kidney disease or end stage renal disease; L03.115 Cellulitis of right lower limb; I70.235 Atherosclerosis of native arteries of right leg with ulceration of other part of foot; I70.245 Atherosclerosis of native arteries of left leg with ulceration of other part of foot; N18.5 Chronic kidney disease, stage 5; M86.171 Other acute osteomyelitis, right ankle and foot; L03.031 Cellulitis of right toe; Z79.02 Long term (current) use of antithrombotics/antiplatelets; E11.69 Type 2 diabetes mellitus with other specified complication; D64.9 Anemia, unspecified; L97.528 Non-pressure chronic ulcer of other part of left foot with other specified severity; L97.518 Non-pressure chronic ulcer of other part of right foot with other specified severity; E11.22 Type 2 diabetes mellitus with diabetic chronic kidney disease; E11.621 Type 2 diabetes mellitus with foot ulcer; E11.40 Type 2 diabetes mellitus with diabetic neuropathy, unspecified; E78.5 Hyperlipidemia, unspecified; I25.10 Atherosclerotic heart disease of native coronary artery without angina pectoris; Z95.5 Presence of coronary angioplasty implant and graft; E87.5 Hyperkalemia; Z79.4 Long term (current) use of insulin; N28.1 Cyst of kidney, acquired; Z79.899 Other long term (current) drug therapy
CPT/HCPCS: 36415; 71045-TC; 73630-TC; 73718-TC; 75625; 76770-TC; 80048-TC; 80053-TC; 80076-TC; 80202-TC; 81001; 82550-TC; 82570-TC; 82962-TC; 83605-TC; 83735-TC; 83970; 84100-TC; 84155; 84165; 84300-TC; 85025-TC; 85347; 85652-TC; 85730-TC; 86140-TC; 86803; 87040-TC; 87070-TC; 87075-TC; 87081-TC; 87086-TC; 87186-TC; 87806; 93970-TC; A4223; A6403; G0378; J0360; J0696; J1644; J1650; J1815; J2250; J2543; J3010; J3373; J3374; J3490; J7030; J7040; J7060; Q9967

== ENCOUNTER 2025-10-13 09:57 | Outpatient (CLI) | payer MEDICARE, OTHER ==
[~2025-10-13 09:57] MED LIST changes: +ALLO100T PO; +AMOX-430 PO; -ATOR20TA PO; +CLOP75TA15 PO; +DOXY-326 PO; +DUTA0.5C37 PO; +ERGO500040 PO; +ESCI10TA PO; -FURO20TA4 PO; +GABA-532 PO; +INSU100I26 SQ; -INSU100I30 SQ; +INSU100V11 SQ; +LIDOCAINE SOLN 4% 50 ML BOTTLE ONE; +MEMA10TA PO; +OMEP1CAP24 PO; +PANT40TA49 PO; +PRAM0.253 PO; +RIVA1PAT3 TD; +ROSU20TA2 PO; +TAMS-12 PO; +TAVA10SO2 TP; +ZILE600T5 PO
[2025-10-13] MEDS ORDERED: COLLAGENASE 5 GM TUBE UD TP ONE (10:28)
== END 2025-10-13 23:59 | disposition home health service (06) ==
LOC: WOU 09:57
PROVIDERS: ATTEND Student in an Organized Health Care Education/Training Program
DX: I70.245 Atherosclerosis of native arteries of left leg with ulceration of other part of foot (principal); L97.525 Non-pressure chronic ulcer of other part of left foot with muscle involvement without evidence of necrosis; I70.235 Atherosclerosis of native arteries of right leg with ulceration of other part of foot; L97.512 Non-pressure chronic ulcer of other part of right foot with fat layer exposed; E11.40 Type 2 diabetes mellitus with diabetic neuropathy, unspecified; E11.51 Type 2 diabetes mellitus with diabetic peripheral angiopathy without gangrene; Z79.4 Long term (current) use of insulin; Z79.84 Long term (current) use of oral hypoglycemic drugs; I10 Essential (primary) hypertension